=== PATIENT | male | born 1960 | race Caucasian/White ===

== ENCOUNTER → 2024-12-24 10:52 | Outpatient (CLI) | payer MEDICARE, BC, SELFPAY ==
--- NOTE | 2024-12-24 | DI.NM.S_ITS ---
PROCEDURE: NM BONE SCAN WHOLE BODY RADIOPHARMACEUTICAL: 20.2 mCi Tc-99m MDP IV. INDICATIONS: HEPATOCELLULAR CARCINOMA TECHNIQUE: Delayed whole-body scintigrams were obtained approximately 3-4 hours after intravenous injection of radiotracer. Anterior and posterior views were acquired from vertex to feet. COMPARISON: None. FINDINGS/IMPRESSION: No suspicious radiotracer uptake. Degenerative uptake in the shoulders, sternoclavicular joints. Dictated by: Simon Low M.D. on 12/24/2024 at 16:05 Approved by: Simon Low M.D. on 12/24/2024 at 16:05
== END ==
PROVIDERS: Referring Provider Internal Medicine Medical Oncology; Visit Provider Internal Medicine Medical Oncology
DX: C22.0 Liver cell carcinoma (principal)
CPT/HCPCS: 78306; A9503